=== PATIENT | female | born 1995 | race Caucasian/White ===

== ENCOUNTER 2020-03-10 09:18 | Outpatient (CLI) | payer BC, SELFPAY ==
--- NOTE | ~2020-03-10 | US_ITS ---
US breast LT complete 03/10/2020 09:54 Indication: Left breast lump and 4 days Procedure: High-resolution ultrasound of the left breast Comparison: No prior studies for comparison. Findings: There are multiple cysts of the left breast, largest at 11:00, 5 cm from the nipple measuri ng 1.5 x 1.2 x 1.2 cm. No solid masses. No abnormal vascularity. Impression: 1: Multiple left breast cysts, largest at 11:00, 5 cm from the nipple. No sonographic evidence for ma lignancy. BI-RADS CATEGORY 2 - BENIGN FINDINGS Reviewed, dictated and finalized at location A. Impression: 1: Multiple left breast cysts, largest at 11:00, 5 cm from the nipple. No sonog raphic evidence for malignancy. BI-RADS CATEGORY 2 - BENIGN FINDINGS
== END 2020-03-10 09:19 | disposition home or self-care (01) ==
LOC: ANHIMG 09:26
PROVIDERS: PCP Family Medicine; Visit Provider Physician Assistant
DX: R22.9 Localized swelling, mass and lump, unspecified (principal); R92.8 Other abnormal and inconclusive findings on diagnostic imaging of breast
CPT/HCPCS: 76641

== ENCOUNTER 2020-04-27 11:41 | Emergency (ER) | payer BC, SELFPAY ==
--- NOTE | ~2020-04-27 | XR_ITS ---
EXAMINATION: XR chest 1V portable INDICATION: Cough and fever TECHNIQUE: Portable AP chest at 1254 hours COMPARISON: None available FINDINGS: There are patchy opacities of the lower lung zones. No pleural effusion or pneumothorax is identified. The cardiomediastinal silhouette is normal. IMPRESSION: 1. Patchy airspace opacities of the lower lung zones, consistent with atelectasis versus pneumonia. Reviewed, dictated and finalized at location A. IMPRESSION: 1. Patchy airspace opacities of the lower lung zones, consistent with atelectas is versus pneumonia.
[2020-04-27 12:01] VITALS: BP 163/100; PULSE 96; RESP 18; TEMP 37.4; O2SAT 100
[2020-04-27] MEDS: SODIUM CHLORIDE 0.9% IV 1,000 ML 999 ML IV CONT (13:35)
[2020-04-27] MEDS: FAMOTIDINE 20 MG/2 ML VIAL IV PUSH (13:36)
[2020-04-27 13:37] VITALS: BP 145/90; PULSE 91; RESP 18; O2SAT 99
--- NOTE | 2020-04-27 14:05 | ED.URI ---
HPI - URI/Sore Throat General Chief Complaint: Upper Respiratory Infection Stated Complaint: cough, fever Time Seen by Provider: 04/27/20 12:17 Source: patient Mode of arrival: ambulatory Limitations: no limitations History of Present Illness HPI Narrative: Patient is a 24-year-old female who presents to emergency department for evaluation of upper respiratory symptoms noting productive cough of clear phlegm some slight rhinorrhea subjective fever with chills some loose stools over the course of the last week and a half. Patient has not taken anything for her symptoms nor has she been seen for this complaint. Patient denies sick contacts. Patient on arrival in the room in no distress. Patient notes mild aching pain of the chest that occurs with coughing and deep breathing Related Data Allergies Allergy/AdvReac Type Severity Reaction Status Date / Time latex Allergy Unknown Unknown Verified 04/27/20 12:05 Penicillins Allergy Unknown Skin Verified 04/27/20 12:05 Reaction Review of Systems Review of Systems: All systems reviewed & are unremarkable except as noted in HPI and below PMFSH Past Medical History Medical History (Updated 04/27/20 @ 14:18 by Demarcus Phillips PA-C) Migraine Social History Social History Smoking status: Never smoker Alcohol intake: current Gender identity (if verbalized by the patient): Female Exam Narrative: Exam Narrative: GENERAL: Well-appearing, well-nourished, and in no acute distress. HEAD: Normocephalic, atraumatic. EYES: PERRLA and EOMI. ENT: Nares clear, no rhinorrhea or epistaxis. Mucous membranes moist. Oropharynx without tonsillar hypertrophy exudate or other lesions. NECK: Supple. No adenopathy or masses. CHEST: Clear to auscultation. No respiratory distress. No wheezes rales or rhonchi HEART: Regular rate and rhythm. No murmur heard. Normal peripheral pulses. ABDOMEN: Soft, nontender, nondistended EXTREMITIES: Normal range of motion. No edema. SKIN: Warm, dry, no rash. NEURO: No focal deficits. Alert and oriented x3. Cranial nerves II through XII grossly intact PSYCH: Normal mood and affect. Course Course Emergency Course: Patient in the room at this time resting comfortably aware of discussion with primary care and recommendations Consultations Consultation #1: Discussed case with primary care will follow patient in clinic Date: 04/27/20 Time: 15:00 Vital Signs Vital signs: Vital Signs Temperature 99.4 F 04/27/20 12:01 Pulse Rate 96 04/27/20 12:01 Respiratory Rate 18 04/27/20 12:01 Blood Pressure 163/100 H 04/27/20 12:01 Pulse Oximetry 100 04/27/20 12:01 Temperature 99.4 F 04/27/20 12:01 Pulse Rate 91 04/27/20 13:37 Respiratory Rate 18 04/27/20 13:37 Blood Pressure 145/90 H 04/27/20 13:37 Pulse Oximetry 99 04/27/20 13:37 MDM - URI/Sore Throat MDM Narrative Medical decision making narrative: Patient in the room with likely pneumonia has been tested for COVID felt appropriate for discharge home hemodynamically stable. Patient given medications in the emergency department sent home with a spacer will be placed on antibiotics aware of discussion with primary care who she will follow with and also provided with reasons to return Lab Data Labs: Lab Results 04/27/20 Range/Units 13:40 SARS-CoV-2 RNA (RT-PCR) Pending Imaging Data Radiologist's impression: ITS Impressions Chest X-Ray 04/27/20 12:59 IMPRESSION: 1. Patchy airspace opacities of the lower lung zones, consistent with atelectasis versus pneumonia. Discharge Plan Discharge Clinical Impression: Pneumonia Patient Disposition: Home, Self-Care Condition: Stable Instructions: Antibiotic Form, Pneumonia (ED), COVID-19 (Coronavirus Disease 2019) (ED) Additional Instructions: Follow up with your primary care provider within 5 days. Go to ER for shortness of
[2020-04-27 14:39] LABS: Basophils Percent Auto 0.3 % (0.2-1.2); Eosinophils Percent Auto 0.3 % (0-4.4); Hematocrit 36.3 % (37.0-47.0); Hemoglobin 12.5 g/dL (12.0-15.0); Immature Granulocyte Absolute 0.03 K/mm3 (0.00-0.031); Immature Granulocyte Percent A 0.3 % (0-0.5); Mean Corpuscular HGB Conc 34.4 g/dl (32-36); Mean Corpuscular Hemoglobin 29.7 pg (26-34); Mean Corpuscular Volume 86.2 fl (80-100); Mean Platelet Volume 9.8 fl (7.4-10.4); Monocytes Absolute Auto 0.6 K/mm3 (0.1-0.6); Monocytes Percent Auto 5.7 % (2.6-8.5); Neutrophils Absolute Auto 8.5 K/mm3 (1.3-6.7); Neutrophils Percent Auto 79.4 % (45.5-73.1); Platelet Count Result 279 k/mm3 (150-375); Red Blood Count 4.21 M/mm3 (4.2-5.4); Red Cell Distribution Width 12.3 % (11.5-14.5); White Blood Count 10.7 K/mm3 (4.5-10.0)
[2020-04-27 14:46] LABS: Add Urine Microscopic? YES; Appearance Urine Clear (Clear); Bacteria Urine Trace /hpf; Bilirubin Urine Negative (Negative); Blood Urine Negative (Negative); Color Urine Yellow (Yellow); Glucose Urine UA Negative (Negative); Ketones Urine 2+ mg/dL (Negative); Leukocyte Esterase Ur Negative LEU/UL (Negative); Mucus Urine Heavy /lpf; Nitrate Urine Negative (Negative); Protein Urine 1+ mg/dL (Negative); Squamous Epithelial Cell Urine Many /hpf (Few)
[2020-04-27 14:49] LABS: Lactic Acid Reflex 0.7 mmol/L (0.7-2.1)
[2020-04-27 14:50] LABS: Alanine Aminotransferase 10 U/L (4-35); Albumin Level 4.3 g/dL (3.5-5.1); Alkaline Phosphatase 79 U/L (38-126); Aspartate Amino Transferase 19 U/L (14-36); Bilirubin,Total 0.3 mg/dL (0.2-1.3); Blood Urea Nitrogen 13 mg/dL (7-17); Calcium 8.7 mg/dL (8.4-10.2); Carbon Dioxide 22 mmol/L (22-30); Chloride 107 mmol/L (98-107); Estimated CRCL calculation 162 ml/min; Estimated Glomerular Filt Rate > 60; Glucose 85 mg/dL (65-105); Potassium 3.6 mmol/L (3.4-5.0); Sodium 139 mmol/L (137-145)
[2020-04-27 14:51] LABS: D Dimer 0.34 ug/mL (<0.48)
[2020-04-27 15:30] VITALS: BP 122/80; PULSE 70; RESP 18; O2SAT 99
[2020-04-28 12:47] LABS: SARS-CoV-2 RNA PCR Negative
== END 2020-04-27 15:31 | disposition home or self-care (01) ==
PROVIDERS: Emergency Medicine Emergency Medical Services; Emergency Provider Emergency Medicine; PCP Family Medicine
DX: J18.9 Pneumonia, unspecified organism (principal); Z20.828 Contact with and (suspected) exposure to other viral communicable diseases
CPT/HCPCS: 36415; 71045; 80053; 81001; 81025; 83605; 85025; 85380; 87040; 87635; 96361; 96365; 96375; 99284; C9803; J0131; J7030; U0003

== ENCOUNTER 2020-04-28 10:52 | Emergency (ER) | payer BC, SELFPAY ==
--- NOTE | ~2020-04-28 | XR_ITS ---
EXAMINATION: XR chest 1V portable EXAM DATE: 04/28/2020 11:32 INDICATION: Shortness of breath. TECHNIQUE: Portable AP frontal chest x-ray was obtained. Comparison is made to prior examination from 04/27/2020. FINDINGS: The lungs are clear. There are no pleural effusions. Cardiomediastinal silhouette is norm al. There is no pneumothorax suspected. The bones and soft tissues are unremarkable. IMPRESSION: Normal chest x-ray exam. Reviewed, dictated and finalized at location B. IMPRESSION: Normal chest x-ray exam.
[2020-04-28 11:01] VITALS: BP 155/102; PULSE 134; RESP 30; TEMP 37; O2SAT 100
[2020-04-28 11:05] VITALS: PULSE 134; O2SAT 100
--- NOTE | 2020-04-28 11:10 | PC.NURSE ---
IV therapy called at this time after multiple attempts for IV access.
--- NOTE | 2020-04-28 11:11 | ED.SOB ---
HPI - SOB/Dyspnea General Chief Complaint: Shortness of Breath/Dyspnea Stated Complaint: sob, seen yesterday Time Seen by Provider: 04/28/20 11:00 History of Present Illness HPI Narrative: cough, congestion, pleuritic chest pain for over 1 week. SOB since yesterday. Seen here at that time CXR had basilar infiltrate. COVID-19 test sent. Started on azithromycin and albuterol. She returns because she awoke this morning feeling very SOB. She tried the albuterol without relief. Related Data Allergies Allergy/AdvReac Type Severity Reaction Status Date / Time latex Allergy Unknown Unknown Verified 04/28/20 11:06 Penicillins Allergy Unknown Skin Verified 04/28/20 11:06 Reaction Review of Systems Review of Systems: All systems reviewed & are unremarkable except as noted in HPI and below Constitutional: Constitutional: Reports chills and Reports fever(s) ENT: Denies sore throat Cardiovascular: Cardiovascular: Reports chest pain Respiratory: Respiratory: Reports cough and Reports dyspnea Gastrointestinal: Gastrointestinal: Denies nausea Psychiatric: Psychiatric: Reports anxiety PMFSH Past Medical History Medical History Migraine Family History Family History Grandparent Carcinoma of colon Family history of lung cancer Social History Social History Smoking status: Never smoker Alcohol intake: current Gender identity (if verbalized by the patient): Female Exam Const: General: healthy appearing, no acute distress and alert Orientation/consciousness: patient oriented x3 HENMT: Head: normal to inspection Neck: Neck: normal visual inspection and no lymphadenopathy Chest: Chest palpation & inspection: no tenderness Resp: Effort & Inspection: normal respiratory effort Auscultation: clear to auscultation bilaterally, no rales, no rhonchi and no wheezes Cardio: Jugular venous distension: no JVD Rate: regular rate Rhythm: regular rhythm Heart sounds: no murmurs GI: Inspection: non-distended GI Palp: Yes Soft to palpation and No Tenderness to palpation present (GI) Skin: General skin exam: normal color Neuro: General: patient oriented x3 and moves all extremities Speech: normal speech Extrem: General: no edema Psych: Appearance: well kempt Affect: normal affect Course Vital Signs Vital signs: Vital Signs Temperature 37.0 C 04/28/20 11:01 Pulse Rate 134 H 04/28/20 11:01 Respiratory Rate 30 H 04/28/20 11:01 Blood Pressure 155/102 H 04/28/20 11:01 Pulse Oximetry 100 04/28/20 11:01 Temperature 37.0 C 04/28/20 11:01 Pulse Rate 89 04/28/20 15:02 Respiratory Rate 15 04/28/20 15:02 Blood Pressure 142/72 H 04/28/20 15:02 Pulse Oximetry 100 04/28/20 15:02 MDM - SOB/Dyspnea Differential Diagnosis Differential diagnosis: Likely community acquired pneumonia and other (COVID-19, Bronchitis) Medical Records Attestation: I reviewed the patient's medical records. Lab Data Attestation: I reviewed the patient's lab results. Result diagrams: 04/28/20 11:40 04/28/20 11:40 Labs: Lab Results 04/28/20 04/28/20 04/28/20 Range/Units 11:40 11:40 11:40 WBC 11.0 H (4.5-10.0) K/mm3 RBC 4.36 (4.2-5.4) M/mm3 Hgb 12.9 (12.0-15.0) g/dL Hct 36.6 L (37.0-47.0) % MCV 83.9 (80-100) fl MCH 29.6 (26-34) pg MCHC 35.2 (32-36) g/dl RDW 12.1 (11.5-14.5) % Plt Count 290 (150-375) k/mm3 MPV 9.6 (7.4-10.4) fl Immature Gran % (Auto) 0.4 (0-0.5) % Neut % (Auto) 80.0 H (45.5-73.1) % Lymph % (Auto) 14.3 L (18.3-44.2) % [place] % (Auto) 4.4 (2.6-8.5) % Eos % (Auto) 0.5 (0-4.4) % Baso % (Auto) 0.4 (0.2-1.2) % Lymph # (Auto) 1.57 (0.9-3.2) K/mm3 [place] # (Auto) 0.5 (0.1-0.6) K/mm3 Eos # (Auto) 0.1 (0-0.3)
--- NOTE | 2020-04-28 11:28 | PC.NURSE ---
Care assumed at this time, report given by KASSANDRA Cervantes
[2020-04-28 11:51] LABS: Basophils Percent Auto 0.4 % (0.2-1.2); Eosinophils Absolute Auto 0.1 K/mm3 (0-0.3); Eosinophils Percent Auto 0.5 % (0-4.4); Hematocrit 36.6 % (37.0-47.0); Hemoglobin 12.9 g/dL (12.0-15.0); Immature Granulocyte Absolute 0.04 K/mm3 (0.00-0.031); Immature Granulocyte Percent A 0.4 % (0-0.5); Lymphocytes Absolute Auto 1.57 K/mm3 (0.9-3.2); Lymphocytes Percent Auto 14.3 % (18.3-44.2); Mean Corpuscular HGB Conc 35.2 g/dl (32-36); Mean Corpuscular Hemoglobin 29.6 pg (26-34); Mean Corpuscular Volume 83.9 fl (80-100); Mean Platelet Volume 9.6 fl (7.4-10.4); Monocytes Absolute Auto 0.5 K/mm3 (0.1-0.6); Monocytes Percent Auto 4.4 % (2.6-8.5); Neutrophils Absolute Auto 8.8 K/mm3 (1.3-6.7); Platelet Count Result 290 k/mm3 (150-375); Red Blood Count 4.36 M/mm3 (4.2-5.4); Red Cell Distribution Width 12.1 % (11.5-14.5)
[2020-04-28] MEDS: SODIUM CHLORIDE 0.9% IV 1,000 ML 999 ML IV CONT (11:55)
[2020-04-28 12:03] LABS: Lactic Acid Reflex 1.5 mmol/L (0.7-2.1)
[2020-04-28 12:05] LABS: Alanine Aminotransferase 12 U/L (4-35); Albumin Level 4.5 g/dL (3.5-5.1); Alkaline Phosphatase 85 U/L (38-126); Aspartate Amino Transferase 20 U/L (14-36); Bilirubin,Total 0.4 mg/dL (0.2-1.3); Blood Urea Nitrogen 11 mg/dL (7-17); CRP 5.6 mg/dL (<1.0); Calcium 9.4 mg/dL (8.4-10.2); Carbon Dioxide 19 mmol/L (22-30); Chloride 106 mmol/L (98-107); Estimated CRCL calculation 163 ml/min; Estimated Glomerular Filt Rate > 60; Glucose 157 mg/dL (65-105); Potassium 3.3 mmol/L (3.4-5.0); Sodium 136 mmol/L (137-145)
[2020-04-28 13:01] VITALS: BP 137/93; PULSE 118; RESP 19; O2SAT 100
[2020-04-28 13:35] VITALS: BP 144/87; PULSE 108; RESP 15; O2SAT 100
[2020-04-28] MEDS: KETOROLAC 30 MG/ML VIAL (*BKC) IV PUSH (13:35)
[2020-04-28 14:00] VITALS: BP 144/81; PULSE 92; RESP 12; O2SAT 98
[2020-04-28 15:02] VITALS: BP 142/72; PULSE 89; RESP 15; O2SAT 100
== END 2020-04-28 15:20 | disposition home or self-care (01) ==
PROVIDERS: Emergency Provider Emergency Medicine; PCP Family Medicine
DX: J18.9 Pneumonia, unspecified organism (principal)
CPT/HCPCS: 36415; 71045; 80053; 83605; 85025; 86140; 96361; 96374; 99284; J1885; J7030

== ENCOUNTER → 2022-05-01 07:33 | Outpatient (CLI) | payer BC, SELFPAY ==
--- NOTE | ~2022-05-01 | US_ITS ---
US abdomen limited INDICATION: Nausea, loss of appetite and anorexia PROCEDURE: Realtime right upper abdominal ultrasound. COMPARISON: No prior studies for comparison. FINDINGS: The pancreas is normal without focal mass or pancreatic ductal dilation. Liver echotexture is normal without focal mass or intrahepatic biliary dilatation. There is normal directional flow i n the portal vein. The gallbladder is normal without stones, gallbladder wall thickening or pericholecystic fluid. Comm on bile duct measures 4 mm. No sonographic Erazo's sign. IMPRESSION: 1: Normal limited abdominal ultrasound. Reviewed, dictated and finalized at location A.
== END ==
PROVIDERS: PCP Family Medicine; Visit Provider Family Medicine
DX: R11.0 Nausea (principal); R63.0 Anorexia
CPT/HCPCS: 76705

== ENCOUNTER 2022-05-11 07:41 | Outpatient (CLI) | payer BC, SELFPAY ==
--- NOTE | ~2022-05-11 | NM_ITS ---
EXAMINATION: NM hepatobiliary wo pharm DATE: 05/11/2022 12:19 CDT INDICATION: Nausea COMPARISON: Ultrasound dated 05/01/2022. TECHNIQUE: 4.8 mCi Tc-99m mebrofenin (Choletec) was administered intravenously. Scintigraphic images of the abdomen were obtained for one hour. At the 1 hour time point, the patient drank 8 oz Ensure, and imaging was continued for 60 minutes. Gallbladder ejection fraction was calculated by the technol ogist. FINDINGS: There is normal clearance of radiotracer from the blood pool. There is homogeneous tracer u ptake by the liver. Activity progresses to the bowel and gallbladder. The gallbladder ejection fract ion is 70%. Note that with this technique, normal GBEF >= 33%. IMPRESSION: 1. Normal hepatobiliary scan. Reviewed, dictated and finalized at location A.
== END 2022-05-11 07:42 | disposition home or self-care (01) ==
PROVIDERS: PCP Family Medicine; Visit Provider Family Medicine
DX: R11.0 Nausea (principal)
CPT/HCPCS: 78226; A9537

== ENCOUNTER 2023-04-11 11:06 | Outpatient (CLI) | payer OTHER, SELFPAY ==
--- NOTE | ~2023-04-11 | XR_ITS ---
[id number] DATE: 04/11/2023 11:24 INDICATION: Left lower lateral rib pain. No injury. TECHNIQUE: PA chest. 3 views of the right ribs. 3 views of the left ribs. COMPARISON: None FINDINGS: Left cervical rib. Very small right cervical rib. Old healed left fifth and sixth anterolateral rib fractures. Normal heart size. No hilar or mediastinal enlargement. No pulmonary infiltrate or consolidation, ple ural effusion or pulmonary vascular congestion or pneumothorax. Minimal thoracic scoliosis. IMPRESSION: Bilateral cervical ribs, larger on the left Old healed anterolateral left fifth and sixth rib fractures Reviewed, dictated and finalized at Location A. Reviewed, dictated and finalized at location L.
== END 2023-04-11 11:07 ==
PROVIDERS: PCP Family Medicine; Visit Provider Family Medicine
DX: R07.81 Pleurodynia (principal)
CPT/HCPCS: 71111

== ENCOUNTER 2023-04-11 12:28 | Outpatient (CLI) | payer OTHER, SELFPAY ==
--- NOTE | ~2023-04-11 | XR_ITS ---
XR ankle LT min 3V DATE: 04/11/2023 12:36 INDICATION: Lateral ankle pain and swelling after jumping TECHNIQUE: 4 views COMPARISON: None FINDINGS: Mild plantar calcaneal enthesopathy without erosive change or periostitis. Mild lateral left ankle soft tissue swelling. No fracture or dislocation of the ankle or disruption of the ankle mortise. No periosteal reaction or bone destruction. IMPRESSION: Mild lateral ankle soft tissue swelling; no fracture or dislocation Reviewed, dictated and finalized at location L.
== END 2023-04-11 12:29 ==
LOC: GOSHIMG 12:30
PROVIDERS: PCP Family Medicine; Visit Provider Family Medicine
DX: M25.572 Pain in left ankle and joints of left foot (principal); M79.89 Other specified soft tissue disorders
CPT/HCPCS: 73610

== ENCOUNTER 2023-08-20 08:33 | Outpatient (CLI) | payer OTHER, SELFPAY ==
--- NOTE | ~2023-08-20 | XR_ITS ---
XR_[id number]_[id number] DATE: 08/20/2023 08:47 INDICATION: Right lower rib pain under breast. No injury. TECHNIQUE: COMPARISON: None FINDINGS: Bilateral cervical ribs are noted, larger on the left, the left cervical rib likely articul ating with or fused with the left first rib. No recent rib fracture or bone destruction is detected. Normal heart size. No hilar or mediastinal enlargement. No pulmonary infiltrate or consolidation, ple ural effusion or pulmonary vascular congestion or pneumothorax is detected. IMPRESSION: Bilateral cervical ribs Reviewed, dictated and finalized at Location A. Reviewed, dictated and finalized at location L. IMPRESSION: Bilateral cervical ribs
== END 2023-08-20 08:34 ==
PROVIDERS: PCP Family Medicine; Visit Provider Nurse Practitioner Family
DX: R07.81 Pleurodynia (principal)
CPT/HCPCS: 71101

== ENCOUNTER 2023-08-20 08:56 | Outpatient (CLI) | payer OTHER, SELFPAY ==
[2023-08-20 18:39] LABS: Alanine Aminotransferase 14 U/L (6-35); Albumin Level 4.1 g/dL (3.5-5.1); Alkaline Phosphatase 96 U/L (38-126); Anion Gap 6 mmol/L (8-16); Aspartate Amino Transferase 37 U/L (14-36); Bilirubin,Total 0.5 mg/dL (0.2-1.3); Blood Urea Nitrogen 12 mg/dL (7-17); Calcium 8.8 mg/dL (8.4-10.2); Carbon Dioxide 26 mmol/L (22-30); Chloride 105 mmol/L (98-107); Cholesterol 189 mg/dL (0-200); Estimated Glomerular Filt Rate > 60; Glucose 85 mg/dL (65-110); HDL Direct 44 mg/dL; Sodium 137 mmol/L (137-145); Triglycerides 132 mg/dL (<150)
[2023-08-20 18:50] LABS: LDL Cholesterol Direct 118 mg/dL
[2023-08-20 19:14] LABS: Basophils Absolute Auto 0.1 K/mm3 (0.0-0.1); Basophils Percent Auto 0.9 % (0.2-1.2); Eosinophils Absolute Auto 0.5 K/mm3 (0-0.3); Eosinophils Percent Auto 7.1 % (0-4.4); Hemoglobin 12.1 g/dL (12.0-15.0); Immature Granulocyte Absolute 0.02 K/mm3 (0.00-0.031); Immature Granulocyte Percent A 0.3 % (0-0.5); Lymphocytes Absolute Auto 2.41 K/mm3 (0.9-3.2); Lymphocytes Percent Auto 32.5 % (18.3-44.2); Mean Corpuscular HGB Conc 31.8 g/dl (32-36); Mean Corpuscular Hemoglobin 27.8 pg (26-34); Mean Corpuscular Volume 87.4 fl (80-100); Mean Platelet Volume 10.5 fl (7.4-10.4); Monocytes Absolute Auto 0.4 K/mm3 (0.1-0.6); Monocytes Percent Auto 5.7 % (2.6-8.5); Neutrophils Percent Auto 53.5 % (45.5-73.1); Platelet Count Result 333 k/mm3 (150-375); Red Blood Count 4.35 M/mm3 (4.2-5.4); Red Cell Distribution Width 13.8 % (11.5-14.5); White Blood Count 7.4 K/mm3 (4.5-10.0)
[2023-08-20 19:24] LABS: Vitamin D 25 Hydroxy 34.2 ng/mL
[2023-08-25 14:43] LABS: Prolactin 10.4 ng/mL (***)
== END 2023-08-20 08:57 | disposition home or self-care (01) ==
LOC: ANHGOSHLAB 08:59
PROVIDERS: PCP Family Medicine; Visit Provider Nurse Practitioner Family
DX: F41.1 Generalized anxiety disorder (principal); N64.3 Galactorrhea not associated with childbirth; N94.4 Primary dysmenorrhea; E66.9 Obesity, unspecified
CPT/HCPCS: 36415; 80053; 80061; 82306; 82607; 84146; 84443; 85025

== ENCOUNTER → 2023-11-15 13:59 | Outpatient (CLI) | payer OTHER, SELFPAY ==
--- NOTE | ~2023-11-15 | XR_ITS ---
XR foot RT min 3V DATE: 11/15/2023 14:14 INDICATION: Fall 2010 days ago. Right metatarsal pain TECHNIQUE: 4 views COMPARISON: None FINDINGS: Os intermetatarseum, normal variant. Mild osteoarthritis at the first metatarsophalangeal joint. No fracture or dislocation, periosteal reaction or bone destruction is detected. IMPRESSION: No fracture or dislocation Reviewed, dictated and finalized at location B. [employer] IMPRESSION: No fracture or dislocation
== END ==
PROVIDERS: PCP Family Medicine; Visit Provider Nurse Practitioner Family
DX: M79.671 Pain in right foot (principal)
CPT/HCPCS: 73630